=== PATIENT | male | born 1945 | race Caucasian/White ===

== ENCOUNTER 2016-09-30 20:30 | Inpatient (IN) | payer MEDICARE ==
[~2016-09-30] VITALS: Ht 182.9 cm; Wt 85.8 kg
--- NOTE | ~2016-09-30 | CON ---
PATIENT'S NAME: MELISSA EATON [facility] AGE: 71 Y [address] ROOM: [id number] [place] [address] LOCATION: GPCU ADMIT DATE: 10/02/2016 Consultation DISCHARGE DATE: FAMILY PHYSICIAN: PHYSICIAN, UNKNOWN ATTENDING PHYSICIAN: RANDY SLOAN DATE OF CONSULTATION: 10/03/2016 REFERRING PHYSICIAN: Randy Sloan MD LOCATION: [facility], [facility]. REASON FOR CONSULTATION: This is a Palliative Care referral for [id number] and end-stage MDS. HISTORY OF PRESENT ILLNESS: This 71-year-old male comes in with abdominal pain in epigastric region and across right upper and lower quadrant, achy, and constant. He had been declining at home, getting weaker, and having more shortness of breath on exertion. He has a known history of Crohn's disease for many years and had been followed by Dr. Segura at [facility]. He also has chronic diarrhea from his Crohn's disease. He continues to have abdominal pain, rates as 7/10, it goes down to about a 5/10. He would like for pain to be lessened. Morphine helps, but does not last very long. He does have some nausea at times and take Zofran for nausea, which helps, and some shortness of breath with exertion. He had chest x-ray that showed [id number] right pleural effusion. A CT of the abdomen and pelvis without contrast showed colitis in the ascending and transverse colon with colonic wall thickening and mild ascites with diffuse mesenteric and retroperitoneal edema, large right pleural effusion, small left pleural effusion, and a small metallic foreign body in the small bowel of unknown etiology. The patient also has a known history of myelodysplastic syndrome, which has been getting worse over the past year requiring multiple transfusions and units of platelets. PAST MEDICAL HISTORY: History of paroxysmal atrial fibrillation, Crohn's disease with chronic diarrhea, abdominal pain, hypertension, chronic kidney disease, stage 3, 3-cm mass in the right upper kidney, the patient declines further investigation, coronary artery disease, post CABG, grafting with stents placed several years ago, anxiety disorder, and depression. PAST SURGICAL HISTORY: Partial small bowel obstruction, secondary to Crohn's disease in the past, status post colectomy twice in the past, according to the patient, status post cholecystectomy, status post appendectomy, status post CABG, coronary artery disease bypass grafting and stents placed in the past. PATIENT'S NAME: MELISSA EATON [facility] AGE: 71 Y [address] ROOM: [id number] [place], [place] [address] [facility] ADMIT DATE: 10/02/2016 Consultation DISCHARGE DATE: FAMILY PHYSICIAN: PHYSICIAN, UNKNOWN ATTENDING PHYSICIAN: RANDY SLOAN ALLERGIES: NONE. HOME MEDICATIONS: 1. Calcium with vitamin D 1 tab b.i.d. 2. Mag oxide 400 mg b.i.d. 3. Folic acid 1 mg daily. 4. Seroquel 25 mg daily at bedtime. 5. Protonix 40 mg daily. 6. Zoloft 50 mg p.o. daily. 7. Trazodone 100 mg at bedtime. 8. Levaquin 500 mg daily. 9. Fluconazole 200 mg daily. 10. Zofran 8 mg every 8 hours p.r.n. nausea and vomiting. 11. Allopurinol 100 mg daily. 12. Flomax 0.5 mg p.o. daily. 13. Diphenoxylate/atropine 1 tablet p.o. t.i.d. 14. Tramadol 50 mg every 6 hours p.r.n. pain. 15. Acyclovir 400 mg daily. 16. Pravastatin 40 mg daily. 17. Nitroglycerin 0.4 mg sublingual every 5 minutes p.r.n. chest pain. 18. Colace 100 mg p.o. daily. 19. Mercaptopurine 50 mg p.o. b.i.d. 20. Tylenol 1000 mg p.o. every 6 hours p.r.n. pain. 21. Hydralazine 50 mg p.o. t.i.d. 22. Hydrochlorothiazide 12.5 mg daily. 23. Lovastatin 100 mg daily. 24. Sotalol 80 mg b.i.d. SOCIAL HISTORY: He lives alone in [place], has 1 sister, lives in the prison. Mother . No alcohol or illicit drug use. Former smoker, half-pack a day for 50 years. FAMILY HISTORY: Father had Alzheimer's, mother after fracturing a hip and advanced age. REVIEW OF SYSTEMS: A 10-point review of systems was done and is negative except as mentioned in HPI and listed below. HEENT: Denies any nosebleeds or bleeding in the oral cavity. GI: He has diarrhea which is normal for him. Last bowel movement 10/02/2016. MUSCULOSKELETAL: Overall, decreased strength. ABDOMEN: Tender throughout. Complains of pain 7/10. Has morphine IV. Has PATIENT'S NAME: MELISSA EATON [facility] AGE: 71 Y [address] ROOM: [place] [address] LOCATION: GPCU ADMIT DATE: 10/02/2016 Consultation DISCHARGE DATE: FAMILY PHYSICIAN: PHYSICIAN, UNKNOWN ATTENDING PHYSICIAN: RANDY SLOAN been taken morphine 2 mg 8 times in the last 24 hours. States it helps him get some rest, but it does not last very long and he is back to hurting. DERM: No new rashes. PSYCH: Some history of depression, is on antidepressants. Positive for fatigue and loss of energy. PHYSICAL EXAMINATION: GENERAL: This is a 71-year-old male in no acute distress. Alert, oriented, in no acute distress. Tires easily. VITAL SIGNS: Temp 97.9, pulse 70, respirations 16, blood pressure 162/76, and O2 sats 92%. He is on oxygen 1 L. SKIN: Warm and dry. Color pale. Multiple ecchymotic areas noted on extremities. HEENT: Normocephalic and atraumatic. Sclerae are nonicteric. Conjunctivae are pale and pink. Mouth is pink and moist without exudate. No bleeding noted. LYMPHS: No cervical adenopathy or thyromegaly. RESPIRATORY: Clear to auscultation bilaterally, diminished. CARDIAC: S1, S2 without murmurs or bruits. ABDOMEN: Rounded, tender upon palpitation, positive bowel tones, no hepatosplenomegaly. NEUROLOGIC: Grossly intact. No focal deficits. MUSCULOSKELETAL: Appropriate range of motions and gait unsteady when up. EXTREMITIES: No cyanosis, multiple ecchymotic areas noted on lower extremities. No edema. LABORATORY DATA: Sodium 142, potassium 4.2, BUN 34, creatinine 1.4, albumin is 2.4, GFR is 50. White count is 3.8, hemoglobin 7.1, hematocrit 22.1, and platelets are 2000. IMPRESSION: Weakness, fatigue, abdominal pain, and emotional distress. PLAN: Met with the patient. Discussed chronic conditions is colitis, Crohn's disease, MDS, resistant to platelets infusions, overall declining status. Discussed goals and the patient states that Dr. Onofre had 1 more med that he would like to him to try to help with his MDS to give him some quality of life. He has a granddaughter who is getting in October and will graduate in December and he would sure like to meet that goal and see her accomplish those goals. He also knows that if he stops all aggressive treatments, he will last about a month, he has a very good understanding of his chronic diseases and prognosis. He is just not ready to stop and go comfort cares yet or go on hospice. PATIENT'S NAME: MELISSA EATON [facility] AGE: 71 Y [address] ROOM: [id number] [place], [place] [address] LOCATION: GPCU ADMIT DATE: 10/02/2016 Consultation DISCHARGE DATE: FAMILY PHYSICIAN: PHYSICIAN, UNKNOWN ATTENDING PHYSICIAN: RANDY SLOAN GOALS: 1. Continue with treatments possibly do 1 more chemo treatment. 2. Hopefully go back home with home health. Has some good support in the community who could help him be at home. Already has a pretty good system of people delivering groceries and helping him home health and [employer] might be a good support for him. If the patient is too weak to go back home discussed other options of possibly going to the swing bed in [place]. 3. Get chemo from Dr. Onofre. 4. Make it to his granddaughter's wedding and graduation. 5. To control abdominal pain better. RECOMMENDATIONS: 1. Abdominal pain, may increase the morphine and give his range 2-4 mg every 3 hours due to the patient taking 2 mg 8 times in the last 24 hours. May need a [employer]. Did discuss a fentanyl with patient and the patient states he had had problems with the pain patch in the past. He is currently on clear liquid diet, to rest bowel. 2. Weakness, and fatigue, may consider getting up in the chair, and working with Physical Therapy if the patient's goal is to get back home. 3. Emotional distress. a. Active listening. b. Emotional support given. c. We will continue to work on goals of care. Thank you for allowing me to assist with this patient. SADIE CARVAJAL NP FOR MD ANKUSH FRIAS/torrey /[id number] d: 10/04/16 0124 t: 10/10/16 1731, CONSULTATION REPORT
--- NOTE | ~2016-09-30 | HP ---
PATIENT'S NAME: MELISSA EATON [facility] AGE: 71 Y [address] ROOM: [id number] [place], [place] [address] LOCATION: GPCU ADMIT DATE: 09/30/2016 History & Physical DISCHARGE DATE: FAMILY PHYSICIAN: PHYSICIAN, UNKNOWN ATTENDING PHYSICIAN: TOM SLOAN DATE OF SERVICE: CHIEF COMPLAINT: Acute on chronic abdominal pain in the epigastric and also in the right upper and right lower quadrants, as well as acute on chronic worsening dyspnea on exertion. HISTORY OF PRESENT ILLNESS: This is a 71-year-old male, who says that for a long time, he has been having dyspnea on exertion, and also for a long time, he has been having chronic abdominal pain in the epigastric and also in the upper right and lower quadrants. The patient has a history of Crohn disease for many years, followed by Dr. Segura in [facility]. He chronically has diarrhea. He says that last night, his epigastric and the right upper/right lower quadrants abdominal pain got worse. However, his diarrhea frequency has been the same of about 3 to 6 times a day. He also noticed this worsening exertional dyspnea for the last few months. Because of the worsening abdominal pain and dyspnea on exertion, the patient went to [place] for evaluation. Over there, the patient had a chest x-ray performed, which showed small-to- moderate right pleural effusion. He also had a CT of the abdomen and pelvis without contrast, which showed findings of colitis in the ascending and the transverse colon, with colonic wall thickening and mild ascites with diffuse mesenteric and retroperitoneal edema. Large right pleural effusion. Small left pleural effusion. Metallic foreign body in the small bowel of unknown etiology. EKG showed sinus rhythm without any acute ischemic changes. Blood work was also performed and was remarkable for a creatinine of 1.38 and alkaline phosphatase of 135. White blood cells were 4.7, hemoglobin was 8.4, hematocrit was 25, platelets were 3, and ESR was 36. Lactic acid of 2.0. Looking back at the [facility], his hemoglobin usually runs in 8.2, hematocrit was at 25, his platelet usually runs in the 2 to 4, and white blood cells usually run in the 2.5 to 5. His creatinine usually runs in the 1.2 to 1.4. GFR runs in the 50s. Given that [place] is a small hospital, and due to the concern for his pancytopenia as well as the finding of the colitis on the CT scan, the patient PATIENT'S NAME: MELISSA EATON [facility] AGE: 71 Y [address] ROOM: [id number] [place], [place] [address] [facility] ADMIT DATE: 09/30/2016 History & Physical DISCHARGE DATE: FAMILY PHYSICIAN: PHYSICIAN, UNKNOWN ATTENDING PHYSICIAN: TOM SLOAN was transferred here for higher level of care. The patient denies any bleeding whatsoever. He denies any epistaxis, melena, hematochezia, hematemesis, hemoptysis, coffee-ground emesis, or any type of bleeding. He does have petechiae in his bilateral lower extremities, but that is chronic and has been there for a long time. He denies any nausea or vomiting, but he does have occasional dry hives. REVIEW OF SYSTEMS: As mentioned in the history of present illness. All other systems were reviewed and were negative except those mentioned in the history of present illness. PAST MEDICAL HISTORY: 1. Myelodysplastic syndrome, currently getting periodic platelets and packed red blood cell transfusions. He is not on chemotherapy or radiation therapy. 2. History of paroxysmal atrial fibrillation. Currently, in sinus rhythm. 3. Crohn disease with chronic diarrhea and abdominal pain. 4. Hypertension. 5. Chronic kidney disease, stage 3. 6. A 3-cm upper mass in the right kidney (the patient declined further investigation). 7. Coronary artery disease, status post CABG coronary artery bypass grafting and stents placed several years ago accordig to patient. 8. Anxiety disorder. 9. Depression. PAST SURGICAL HISTORY: 1. Partial small bowel obstruction secondary to Crohn disease in the past, status post colectomy twice in the past according to patient. 2. Status post cholecystectomy. 3. Status post appendectomy. 4. Status post CABG coronary artery bypass grafting and stents placed in the past. ALLERGIES: NONE. HOME MEDICATIONS: 1. Calcium with vitamin D one tablet p.o. b.i.d. 2. Magnesium oxide 400 mg p.o. b.i.d. 3. Folic acid 1 mg p.o. daily. 4. Seroquel 25 mg p.o. daily at bedtime. PATIENT'S NAME: MELISSA EATON [facility] AGE: 71 Y [address] ROOM: [address] [place] [address] [facility] ADMIT DATE: 09/30/2016 History & Physical DISCHARGE DATE: FAMILY PHYSICIAN: PHYSICIAN, UNKNOWN ATTENDING PHYSICIAN: TOM SLOAN 5. Protonix 40 mg p.o. daily. 6. Zoloft 50 mg p.o. at bedtime. 7. Trazodone 100 mg p.o. at bedtime. 8. Levaquin 500 mg p.o. daily. 9. Fluconazole 200 mg p.o. daily. 10. Zofran 8 mg p.o. every eight hours p.r.n. for nausea and vomiting. 11. Allopurinol 100 mg p.o. daily. 12. Flomax 0.4 mg p.o. daily. 13. Diphenoxylate/atropine one tablet p.o. t.i.d. 14. Tramadol 50 mg p.o. every six hours p.r.n. for pain. 15. Acyclovir 400 mg p.o. daily. 16. Pravastatin 40 mg p.o. daily. 17. Nitroglycerin 0.4 mg sublingual every five minutes p.r.n. for chest pain. 18. Colace 100 mg p.o. daily. 19. Mercaptopurine 50 mg p.o. b.i.d. 20. Tylenol 1000 mg p.o. every six hours p.r.n. for pain. 21. Hydralazine 50 mg p.o. t.i.d. 22. Hydrochlorothiazide 12.5 mg p.o. daily. 23. Losartan 100 mg p.o. daily. 24. Sotalol 80 mg p.o. b.i.d. SOCIAL HISTORY: Habits: The patient is an active cigarette smoker of about half pack per day for the last 50 years. He denies any alcohol or any illegal drug use. FAMILY HISTORY: Father from Alzheimer disease. Mother from advanced age, from a cause that he could not remember. PHYSICAL EXAMINATION: VITAL SIGNS: At the time of my dictation, temperature was 97.4, heart rate was 60, respirations were 15, blood pressure was 141/109, and saturation was 92% on room air. Pain is 6/10 in the epigastric area and in the right upper and the right lower quadrants. GENERAL APPEARANCE: Alert and oriented x3. A very pleasant male, in no acute distress. HEENT: Pupils were equally round and reactive to light. Extraocular muscles are intact. Anicteric sclerae. Nasal turbinates are normal bilaterally. Moist oral mucosa. No oral thrush. NECK: No JVD jugular venous distention. PATIENT'S NAME: MELISSA EATON [facility] AGE: 71 Y [address] ROOM: [address] [address] [facility] ADMIT DATE: 09/30/2016 History & Physical DISCHARGE DATE: FAMILY PHYSICIAN: PHYSICIAN, UNKNOWN ATTENDING PHYSICIAN: TOM SLOAN CARDIOVASCULAR: Regular rate and rhythm. No murmur. No rubs. No gallops. RESPIRATORY: Decreased breath sounds in bibasilar bases, more on the right than the left. No wheezing. No rhonchi. No crackles. No rales. ABDOMEN: Moderate tenderness to palpation in the epigastric and in the right upper and right lower quadrants. No abdominal rigidity. No physical examination to suggest peritonitis. Bowel sounds were present. Soft and nondistended. I could not appreciate hepatosplenomegaly. No palpable mass. EXTREMITIES: No edema in upper or lower extremities. NEUROLOGICAL: Grossly nonfocal. SKIN: He has petechiae in bilateral lower extremities which is chronic. GENITOURINARY: Not examined, given that it is not related to this admission. LABORATORY DATA: Blood work performed on September 30, 2016 from the outside facility in [place] showed white blood cells of 4.7, hemoglobin of 8.4, hematocrit of 25, and platelets of 3. Sodium was 141, potassium was 3.7, carbon dioxide was 26, glucose was 139, BUN blood urea nitrogen of 44, creatinine of 1.38, total calcium of 8.8, total protein of 5.7, albumin of 2.8, total bilirubin of 0.8, ALT of 61, AST of 42, alkaline phosphatase of 135, GFR of 54, chloride of 108, amylase of 55, lipase of 83, and lactic acid of 2.0. Troponin is less than 0.06. CK-MB was less than 0.5. ESR erythrocyte sedimentation rate of 36. IMAGING STUDIES: EKG on admission showed sinus rhythm of heart rate of 65 and QTc of 426. No acute ischemic changes. CT of abdomen and pelvis without contrast from the outside facility on admission showed findings of colitis in the ascending and in the transverse colon consistent with a wall thickening. Mild ascites with diffuse mesenteric and retroperitoneal edema. Large right pleural effusion. Small left pleural effusion. Metallic foreign body in the small bowel of unknown etiology. Chest x-ray performed from the outside facility on admission showed a small-to- moderate right pleural effusion. No focal consolidation. There was atelectasis in the right lung base. ASSESSMENT AND PLAN: 1. Colitis in the setting of Crohn disease: N.p.o. Ceftriaxone and IV PATIENT'S NAME: MELISSA EATON [facility] AGE: 71 Y [address] ROOM: [address] [address] LOCATION: GPCU ADMIT DATE: 09/30/2016 History & Physical DISCHARGE DATE: FAMILY PHYSICIAN: PHYSICIAN, UNKNOWN ATTENDING PHYSICIAN: TOM SLOAN. IV fluids. Steroids. Florastor 250 mg p.o. b.i.d. IV fluids will be running at a slow rate. Given that the patient is hemodynamically stable and has a large right pleural effusion, I will give him lactated Ringer at 50 mL/hr. IV morphine p.r.n. for pain control. GI Gastrointestinal consult in the morning. The patient might have a flare of the Crohn disease. Check labs in the morning. Blood culture was already obtained from the outside facility. The patient does not look septic. Currently, the patient is hemodynamically stable. Lactic acid was also normal from the outside facility. Further plan depends on clinical course. 2. Regarding his acute hypoxemic respiratory failure: He does have a large right-sided pleural effusion more than the left side based on CT report. The patient currently is saturating 97% on 2 L oxygen nasal cannula. On room air, the patient went down to the 90s, to 92. The dyspnea is only on exertion, and this is chronic. Has severe thrombocytopenia resistant to platelet transfusion due to his MDS which could make thoracocentesis difficult. The patient is not in severe acute respiratory failure, and does not require emergent intubation at the moment. Will consult Pulmonlogy if necessary. I have spoken at length with the patient regarding his advanced stage of myelodysplastic syndrome not responding much to transfusions for his chronic anemia and thrombocytopenia. The patient does not want invasive procedures done and states that he has been through a lot and he is tired of his myelodysplastic syndrome. I spoke to him about getting a palliative care consult and the patient agreed. Therefore, I will be placing a Palliative Care consult. The patient at home takes p.o. Levaquin, and I will continue that for now. 3. Regarding his anemia and thrombocytopenia secondary to myelodysplastic syndrome: currently, he does not have leukopenia, and his thrombocytopenia is actually better than last time. He said his platelet count is always between 2k to 4k despite platelet transfusions. He denies any active bleeding. Last time he was here, he received multiple units of HLA-matched platelet transfusions with very little to no response. His platelet was 4k on 09/28/16. Currently, the patient is not bleeding and his platelet count on admission is 3k (drawn at [place]) and that is his average and does not increase further depsite platelet transfusions. The patient has been followed closely as outpatient by patient's primary oncologist and security team lead and would like to continue that here. I will place consult for hematology/oncology in AM. No finding of acute on chronic anemia. Therefore, packed red blood cell transfusion is not necessary at the moment. The patient also denies any bleeding. PATIENT'S NAME: MELISSA EATON [facility] AGE: 71 Y [address] ROOM: [place] [address] [facility] ADMIT DATE: 09/30/2016 History & Physical DISCHARGE DATE: FAMILY PHYSICIAN: PHYSICIAN, UNKNOWN ATTENDING PHYSICIAN: TOM SLOAN 4. Regarding his 3 cm right renal mass seen on the CT scan of the abdomen and pelvis in August 2016: The patient does not want to pursue any further study or any invasive procedure. His thrombocytopenia also makes any invasive procedure difficult. The patient is also going to have a Palliative Care consult. 5. Deep venous thrombosis prophylaxis. The patient is on compression devices. Time spent on the day of admission was 40 minutes including chart review, interviewing and examining the patient, as well as addressing all the questions and concerns that the patient had. I also went over the plan of care with the nurse and the patient. TOM SLOAN MD CC/modl /[id number] D: 135 T: HISTORY & PHYSICAL
--- NOTE | ~2016-09-30 | DS ---
PATIENT'S NAME: MELISSA EATON [facility] AGE: 71 Y [address] ROOM: [place] [address] LOCATION: GPCU ADMIT DATE: 10/02/2016 Discharge Summary DISCHARGE DATE: 10/06/2016 FAMILY PHYSICIAN: Physician, Unknown ATTENDING PHYSICIAN: Randy Mead DATE OF : 10/06/2016 PRIMARY/DISCHARGE DIAGNOSES: 1. Myelodysplastic syndrome. 2. Pancytopenia. 3. Severe thrombocytopenia without bleeding. 4. Acute on chronic hypoxic respiratory failure. 5. Crohn disease flare. 6. Paroxysmal atrial fibrillation. 7. Essential hypertension. 8. Chronic kidney disease, stage 3. 9. Coronary artery disease. 10. Right renal mass. OPERATIONS AND PROCEDURES: None. HISTORY OF PRESENTING ILLNESS/REASON FOR ADMISSION: Please refer to the H and P dictated on 09/30/2016. HOSPITAL COURSE: The patient was admitted to the hospital as noted above with a presumptive diagnosis of acute Crohn's colitis flare in the setting of myelodysplastic syndrome, end-stage. He was placed on progressive care. He was noted to be significantly pancytopenic which was known and followed on an outpatient basis. He had been receiving some PRBC transfusions on an outpatient basis by Hematology and Oncology. Although, his platelets were profoundly low at 2 to 3 at his baseline. He did not show any evidence for bleeding. Hematology and Oncology had recommended against platelet transfusions unless there was evidence for active bleeding. Gastroenterology was consulted. It was felt that he was likely suffering from Crohn disease flare based on clinical exam findings. It was recommended for a prednisone burst as well as treatment with 6-mercaptopurine with a gradual taper. It was requested that Hematology and Oncology follow and taper the regimen of 6-mercaptopurine. Ultimately, the oncologist did evaluate the patient and eventuality the dose of 6-mercaptopurine was reduced. The patient's clinical condition was poor from the outset. He demonstrated significant dyspnea on exertion and some early evidence for acute hypoxic respiratory failure. Oxygen requirements gradually increased. He did receive some IV fluids as well as broad-spectrum antibiotic therapy including IV PATIENT'S NAME: MELISSA EATON [facility] AGE: 71 Y [address] ROOM: [place] [address] LOCATION: GPCU ADMIT DATE: 10/02/2016 Discharge Summary DISCHARGE DATE: 10/06/2016 FAMILY PHYSICIAN: Physician, Unknown ATTENDING PHYSICIAN: Randy Mead Flagyl, and ceftriaxone. Additionally, his home regimen of acyclovir and fluconazole were continued. Cultures remained negative over the course of his hospital stay. The patient continued to complain of refractory abdominal pain. He got some relief with IV morphine and Palliative Care was consulted. They followed him and helped to manage his chronic pain over the course of his hospital stay. His IV morphine regimen was increased gradually. The patient's clinical condition continued to decline somewhat and he became increasingly lethargic and nearly obtunded. The morphine regimen was reduced. His renal function deteriorated somewhat. He was felt to be intravascularly volume deplete and he did receive some additional IV fluid therapy. Urine output was poor, and he received Lasix to help stimulate diuresis. I had some concern that he was becoming fluid overloaded evidenced by his increasing oxygen requirements. By 10/05/2016, the patient had become quite lethargic and nearly obtunded. This increased over the course of the day on 10/06/2016 and once again, the morphine regimen was reduced. Palliative Care was also involved. We did have some preliminary discussions regarding treatment goals and expectations and the patient indicated that he did not wish for any aggressive interventions. Previously, he had refused a workup for the right renal mass citing that he did not want to undergo further treatments. He had been holding out some hope for an additional chemotherapy option by Hematology and Oncology. That was discussed with both Dr. Onofre and Dr. Banerjee, however, aggressive supportive care was recommended. On the evening of 10/06/2016, the patient was resting in his room when bradycardia was noted on telemetry. The nurse was notified, but the bradycardia progressed and heart rates ranged below 30 until he became asystolic. At that point, he was noted to be without pulse or respirations. His wishes for DNR and DNI were observed and he was pronounced at 1858 hours on 10/06/2016. Family were notified and expressed no concerns or questions. MD DEDRICK SCHWARTZ/torrey /[id number] d: 10/09/16 1246 t: 10/16/16 1651, DISCHARGE SUMMARY
--- NOTE | ~2016-09-30 | CON ---
PATIENT'S NAME: MELISSA EATON [facility] AGE: 71 Y [address] ROOM: [id number] [place], [place] [address] LOCATION: GPCU ADMIT DATE: 09/30/2016 Consultation DISCHARGE DATE: FAMILY PHYSICIAN: PHYSICIAN, UNKNOWN ATTENDING PHYSICIAN: RANDY SLOAN DATE OF CONSULTATION: 10/01/2016 REFERRING PHYSICIAN: Randy Sloan MD CONSULTING PHYSICIAN: Abraham Cintron MD. REASON FOR CONSULTATION: Possible exacerbation of Crohn's disease. HISTORY OF PRESENT ILLNESS: The patient is a very pleasant 71-year-old white male who has had a long- standing history of Crohn's disease. He said his first bowel resection was carried out almost 40 years ago. Last resection was done in 2008. He has been managed by Dr. Segura in the [facility]. He was previously managed at [place]. I do not have any much details of the management being offered to him. However, he does seem to be on mercaptopurine 100 mg a day for his problem. He has diarrhea everyday. Gets 7 to 6 bowel movements a day. Recently started feeling very weak. He was ultimately worked up over the last 1 year. He was found to have anemia. He was extensively worked up for the GI tract. He had upper endoscopy and colonoscopy. Apparently, he also had a capsule endoscopy, in which the capsule ultimately did not pass and he still has it in his abdomen, although it is not obstructing. He probably did have a push enteroscopy also. He was seen in [place] yesterday for shortness of breath. He also had worsening abdominal pain. The chest x-ray showed [id number] right pleural effusion. CT of the abdomen and pelvis without contrast showed findings of colitis in the ascending and the transverse colon with colon wall thickening and mild ascites with diffuse mesenteric and retroperitoneal edema. He also has had a right pleural effusion. There was a metallic body in the small bowel, which is likely the capsule. He was found to have a creatinine of 1.38, WBC is 4.7, hemoglobin is 8.4, platelet counts were 3000, ESR 36. His hemoglobin usually runs in the same range. Platelet count was very low hovering around 2 to 4. He gets twice weekly transfusion of blood and platelets White cell count has been between 2.5 to 5. Today, he is still complaining of pain. He has been seen by Palliative Care. He does understand that his prognosis is guarded and wants adequate pain relief. PAST MEDICAL HISTORY: Significant for myelodysplastic syndrome, he did try some chemotherapy initially, but has stopped that now; history of paroxysmal atrial fibrillation, currently in sinus rhythm; Crohn's disease, as above; PATIENT'S NAME: MELISSA EATON [facility] AGE: 71 Y [address] ROOM: [place] [address] LOCATION: GPCU ADMIT DATE: 09/30/2016 Consultation DISCHARGE DATE: FAMILY PHYSICIAN: PHYSICIAN, UNKNOWN ATTENDING PHYSICIAN: RANDY SLOAN hypertension; CKD stage 3; 3 cm mass in the right kidney, which he declined any further workup; coronary artery disease status post CABG several years ago; anxiety disorders; and depression. PAST SURGICAL HISTORY: Significant for at least 2 bowel resections for bowel obstructions, prior cholecystectomy, appendectomy, coronary artery bypass grafting, and stent placement in the past. ALLERGIES: NO KNOWN DRUG ALLERGIES. MEDICATIONS: Include: 1. Calcium. 2. Magnesium oxide. 3. Folic acid. 4. Seroquel. 5. Protonix. 6. Zoloft. 7. Trazodone. 8. Levaquin. 9. Fluconazole. 10. Zofran. 11. Allopurinol. 12. Flomax. 13. Diphenoxylate and atropine. 14. Tramadol. 15. Acyclovir. 16. Prevacid and nitroglycerin p.r.n. 17. Colace 100 mg p.o. b.i.d. 18. Tylenol. 19. Hydralazine. 20. Hydrochlorothiazide. 21. Losartan. 22. Sotalol. 23. Pentasa SOCIAL HISTORY: The patient is an active cigarette smoker about half pack a day. He denies any alcohol or any illegal drug use. FAMILY HISTORY: Father from Alzheimer disease. Mother from advanced age her history not available. PATIENT'S NAME: MELISSA EATON [facility] AGE: 71 Y [address] ROOM: [place] [address] LOCATION: GPCU ADMIT DATE: 09/30/2016 Consultation DISCHARGE DATE: FAMILY PHYSICIAN: PHYSICIAN, UNKNOWN ATTENDING PHYSICIAN: RANDY SLOAN PHYSICAL EXAMINATION: GENERAL: Today, he is alert and awake. He gives a very decent history. Reveals significant pallor. He is does not appear to be jaundiced. VITAL SIGNS: Temperature is 98.1, pulse is 64 per minute, blood pressure 133/60, and his respiratory rate is 16. HEENT: Oral cavity is normal. Nasal passages are clear. CHEST: He does have good air entry bilaterally, this is a limited exam. CARDIOVASCULAR: S1 and S2. Peripheral pulses are palpable and normal. No carotid bruits are heard. ABDOMEN: He has significant distention in the upper abdomen in the epigastrium and RUQ. This appears to be the area of the transverse colon and the ascending colon. He does have normal bowel sounds. MUSCULOSKELETAL: No obvious injuries or deformities are seen. NEUROLOGICAL: Nonfocal. LABORATORY DATA: Today showed blood cultures are negative. Complete blood count showed WBC 3, platelet count is 3000, hemoglobin of 6.8, hematocrit is 20.9. Procalcitonin is high at 1.11. Basic panel shows sodium 144, potassium 4.0, chloride is 110, bicarb is 24, BUN is 43, and creatinine is 1.6. Lactate is 0.8. IMPRESSION: The patient with a history of Inflammatory bowel disease, possible Crohn's disease, presenting now with what appears to be some degree of exacerbation of Crohn's disease. He does have significant abdominal distention. The significant confounding factor in his case is his myelodysplastic syndrome. He says he has severe thrombocytopenia. He is not a candidate for any workup at this time. He wants adequate pain relief. I would suggest that we continue with the palliative care. If Hematology agrees, we may give him short-term steroids to improve his colitis. We may also consider stopping his Mercaptopurine at some point in consultation with his recreational director if it is felt that it might improve his cell counts. Thank you once again for the courtesy of this consultation. MD SKYLER GONZALEZ/torrey /[id number] d: 10/01/161218 t: 10/02/16 1211, CONSULTATION REPORT
--- NOTE | ~2016-09-30 | CON ---
PATIENT'S NAME: MELISSA KIRBY [facility] AGE: 71 Y [address] ROOM: [id number] [place], [place] [address] LOCATION: GPCU ADMIT DATE: 10/02/2016 Consultation DISCHARGE DATE: 10/06/2016 FAMILY PHYSICIAN: Physician, Unknown ATTENDING PHYSICIAN: Randy Mead REFERRING PHYSICIAN: Jag Onofre MD This is a consult to Dr. Mead. Melissa Kirby is a 71-year-old man, hospitalized with multiple comorbidities. Hematology/Oncology is asked to visit to gauge his prognosis from his myelodysplastic syndrome and the suitability of eltrombopag in this setting. The patient is well known to the [facility]. The last office progress note (09/29/2016) dictated by Dr. Onofre is appended to the chart in Physicians Reports and will not be repeated. At that time, plans were made for aggressive supportive care with continued platelet transfusions. Plans were made to forego more definitive therapy with hypomethylating agents. Plans were made to employ the thrombopoietic agent, eltrombopag, and efforts to obtain this were launched. The patient was discharged from the office and returned to his home in [place], [place]. On 09/30/2016, the patient presented to the [facility] with acute on chronic abdominal pain in the epigastric and right upper and lower quadrant as well as persistent and worsening dyspnea on exertion. The patient was seen in the [place] [facility] and was referred to [facility] because of the complexity of his care. White count in [place] was 4700, hemoglobin 8.4, and platelets 3000. The general chemical profile revealed the albumin was 2.8 g/dL and the liver function tests were unremarkable. The creatinine was elevated at 1.4 mg/dL. The ESR was 35. An EKG revealed no acute ischemic changes and a normal sinus rhythm. A chest x-ray revealed a [id number] right pleural effusion. CAT scan of the abdomen and pelvis revealed findings consistent with "colitis" in the ascending and transverse colon with wall thickening. There was mild ascites with diffuse mesenteric and retroperitoneal edema and a small left pleural effusion. A metallic foreign body was present in the small bowel (this is a Pill-Cam). The patient was transferred to [facility]. Palliative Care has been consulted. The patient has been placed on steroids and has continued to receive platelet transfusion support. The patient has a myelodysplastic syndrome, which was first suspected in 2016. This developed in the setting of longstanding Crohn disease, requiring immunosuppression. On 04/09/2016, a myelodysplastic syndrome consistent with refractory cytopenia with multilineage dysplasia with a hypocellular bone marrow was documented. 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 ROOM: [id number] [place], [place] [address] LOCATION: GPCU ADMIT DATE: 10/02/2016 Consultation DISCHARGE DATE: 10/06/2016 FAMILY PHYSICIAN: Physician, Unknown ATTENDING PHYSICIAN: Randy Mead dysmyelopoiesis and dysmegakaryopoiesis with no increase in blasts, increased storage iron, and increased sideroblastic iron. Iron stores were increased. On 05/05/2016, azacitidine was administered. A second cycle was never administered. The patient experienced profound neutropenia and thrombocytopenia with the first cycle and subsequently has become refractory to platelet transfusions, even single donor platelet transfusions. Definitive therapy with azacitidine was then held and eltrombopag was contemplated as noted above. ACTIVE MEDICAL PROBLEMS CHRONIC AND DIAGNOSED: 1. Paroxysmal atrial fibrillation. 2. Myelodysplastic syndrome, refractory cytopenia with multilineage dysplasia. 3. Crohn's disease with daily diarrhea and chronic abdominal pain. 4. Hypertension. 5. CKD, stage III. 6. A 3-cm right renal mass. 7. ASHD, status post CABG, coronary artery bypass grafting, and stents placed. 8. Anxiety disorder and depression. ACUTE MEDICAL ILLNESSES (RESOLVED), PAST SURGERIES, INJURIES: 1. Partial small bowel obstruction. 2. Crohn disease with 2 partial colectomies. 3. Status post cholecystectomy. 4. Status post appendectomy. 5. Status post CABG, coronary artery bypass grafting, and stents placed in the past. MEDICATIONS UPON ADMISSION: 1. Acetaminophen. 2. Acyclovir. 3. Allopurinol. 4. Amlodipine. 5. Calcium with vitamin D. 6. Diphenoxylate with atropine. 7. Docusate sodium. 8. Fluconazole. 9. Folic acid. 10. Hydralazine. 11. Hydrochlorothiazide. 12. Levofloxacin. 13. Losartan. 14. Magnesium oxide. 15. Mercaptopurine 50 mg p.o. b.i.d. PATIENT'S NAME: MELISSA KIRBY [facility] AGE: 71 Y [address] ROOM: [id number] [place], [place] [address] LOCATION: GPCU ADMIT DATE: 10/02/2016 Consultation DISCHARGE DATE: 10/06/2016 FAMILY PHYSICIAN: Physician, Unknown ATTENDING PHYSICIAN: Randy Mead 16. Mesalamine 500 mg p.o. q.i.d. 17. Nitroglycerin p.r.n. 18. Ondansetron p.r.n. 19. Pantoprazole. 20. Pravastatin. 21. . 22. Sertraline. 23. Sotalol. 24. Tamsulosin. 25. Trazodone. ADVERSE REACTIONS TO MEDICATIONS/TRANSFUSIONS/ALLERGIES: The patient has no known allergies. The patient has received multiple platelet transfusions about twice weekly since August 2016. The patient has received 5 units of packed red blood cells since June 2016. SOCIAL HISTORY: The patient lives alone in [place]. He has a sister in [place], who is in the snf. The patient apparently has a granddaughter, who is not particularly close. The patient does have some friends in [place]. One-half pack per day for 50 years. No alcohol use. FAMILY HISTORY: Father of senile dementia of the Alzheimer's type. REVIEW OF SYSTEMS: Negative other than those noted in the history of present illness. PHYSICAL EXAMINATION: VITAL SIGNS: Pulse 60 and regular, blood pressure 115/55, respiratory rate 20, temperature 96.3, and SpO2 of 92% on 4 L. GENERAL: Well-developed, slightly overweight, frail and somewhat somnolent 71- year-old male, in no acute distress. BMI 25.6 kg/m2. Height 72 inches. HEENT: Unremarkable. LYMPH NODES: No JVD or carotid bruits. CHEST: Had decreased breath sounds. Clear anteriorly. CV: Regular rhythm. No murmurs, bruits, or adventitious sounds. ABDOMEN: Mild epigastric tenderness to deep palpation with no rebound. Bowel sounds present, but decreased. GENITALIA AND RECTAL: Not examined. EXTREMITIES: Without peripheral edema. Extensive bilateral lower extremity petechiae. NEURO: The patient is arousable, but not alert. He moves all 4 extremities. PATIENT'S NAME: MELISSA KIRBY [facility] AGE: 71 Y [address] ROOM: [id number] [place], [place] [address] LOCATION: GPCU ADMIT DATE: 10/02/2016 Consultation DISCHARGE DATE: 10/06/2016 FAMILY PHYSICIAN: Physician, Unknown ATTENDING PHYSICIAN: Randy Mead IMPRESSION: 1. Persistent thrombocytopenia due to presumed alloantibodies, due to transfusions, possibly due to the myelodysplasia progressing, and cannot rule out the component of idiopathic thrombocytopenic purpura. 2. The patient is hypersomnolent for multiple causes. This could be due to his digoxin, his antidepressants and major tranquilizers, trazodone, quetiapine and sertraline, due to polypharmacy in general, due to his morphine in the setting of progressive renal insufficiency and possibly due to the end of life. 3. The patient is dwindling and the situation is bleak. Eltrombopag is generally used for idiopathic thrombocytopenic purpura, aplastic anemia, and thrombocytopenia due to hepatitis C. It is reasonably well tolerated. It may not be the standard of care for this particular indication. 4. It is probably past the point anything definitive could be employed. Eltrombopag is a creative approach, but not necessarily a dependably helpful approach. Supportive care, given his profound disability at this point, is the priority. RECOMMENDATIONS: DIAGNOSTIC: 1. No further testing. TREATMENT: 1. Hold eltrombopag at this point. 2. Best supportive care. PATIENT EDUCATION: Attempted to discuss eltrombopag with him. He was not interested in pursuing it at this time. We will stop at the very least his pravastatin and levofloxacin since he is on IV ceftriaxone at this point and since hypercholesterolemia will not worsen his prognosis. MD MANFRED MCKEON/torrey /[id number] CC: Artur Santiago MD d: 10/06/16 1833 t: 10/09/16 1249, CONSULTATION REPORT
[~2016-09-30 20:30] MED LIST: ACYCLOVIR400 MG PO; APRESOLINE50 MG PO; ASPIRIN LO-DOSE81 MG PO; BETAPACE80 MG PO; COLACE100 MG PO; COREG12.5 MG PO; COZAAR100 MG PO; DELZICOL400 M1 PO; DESYREL100 MG PO; DIFLUCAN200 MG PO; DIPHENOXYLATE-1 EACH PO; FLOMAX0.4 MG PO; FOLIC ACID1 MG PO; HYDRODIURIL12.5 MG PO; HYZAAR 100-251 EACH PO; LEVAQUIN500 MG PO; MAG-OX-400(241400 MG PO; MERCAPTOPURINE50 MG PO; NITROSTAT0.4 MG PO; NORVASC10 MG PO; OSCAL + D500 MG PO; PRAVACHOL40 MG PO; PROTONIX40 MG PO; QUETIAPINE FUMA25 MG PO; TYLENOL EXTRA500 MG PO; ULTRAM50 MG PO; VITAMIN B-1000 MCG/M IM; ZOFRAN8 MG PO; ZOLOFT50 MG PO; ZYLOPRIM100 MG PO
[2016-09-30] MEDS ORDERED: LOMOTIL1 TAB PO (22:51)
--- NOTE | 2016-10-01 00:44 | NUR ---
Pt arrived from [place] via ambulance. Was transfered d/t need for higher level of care. VSS on arrival. Pt on 2L, afebrile. SBA. C/o abd pain that is midline and throbbing. Abd distended on admission. R chest port accessed in [place]. Pt came with 1 set of blood cultures. Had IV flagyl and rocephin on transport.
[2016-10-01 03:54] LABS: HEMATOCRIT 20.9 % (37.0-53.0); MCV 90.1 fl (83.0-98.0); RBC 2.32 M/uL (3.50-5.50); RDW-CV 15.6 % (11.9-14.6)
[2016-10-01 03:59] LABS: CALCIUM 8.1 mg/dL (8.5-10.5); CREATININE 1.6 mg/dL (0.6-1.3); MAGNESIUM 2.1 mg/dL (1.3-2.6); PHOSPHORUS 4.1 mg/dL (2.5-4.9)
[2016-10-01 04:00] LABS: HEMOGLOBIN 6.8 g/dL (11.0-16.0); MCH 29.3 pg (27.0-34.0); MCHC 32.5 gm/dL (32.0-36.5)
[2016-10-01 04:02] LABS: PLATELET COUNT 3 K/uL (150-450)
[2016-10-01 05:24] LABS: ABSOLUTE NEUTROPHIL CT (ANC) 2.4 K/uL (1.4-9.0); BANDED NEUTROPHIL # 0.1 K/uL (0.0-0.1); BANDED NEUTROPHILS % 2 %; LYMPHOCYTE # 0.4 K/uL (0.8-4.0); LYMPHOCYTE % 13 %; MONOCYTE # 0.2 K/uL (0.0-1.0); SEGMENTED NEUTROPHIL # 2.3 K/uL (1.4-9.0); SEGMENTED NEUTROPHIL % 77 %
--- NOTE | 2016-10-01 05:33 | NUR ---
Pt a/o x4, vss on 2L (baseline RA), afebrile. R chest port accessed. SL. New iv CARIN SL. Needs 1 unit PRBC irradiated and 1 unit platelets. hg 6.8, platelet count 3. Has MDS- gets chronic transfusions of both. Admitted for colitis r/t chrons disease. C/o midline abd pain-recieves 1 mg morphine with occasional relief. Per [facility] pt has hx of opiod dependancy. diagnosed acites as well as bilat pleural effuisions R>L. No pulmonary consult as pt is not a surgical candidate d/t thrombocytopenia. Refuses scds Plan: GI/Hematology/Palliative care consult for today/
[2016-10-01] MEDS ORDERED: NORVASC10 MG PO (10:50)
[2016-10-01] MEDS ORDERED: PENTASA500 MG PO (10:50)
[2016-10-01 17:43] LABS: HEMATOCRIT 24.8 % (37.0-53.0); HEMOGLOBIN 8.3 g/dL (11.0-16.0)
--- NOTE | 2016-10-02 04:52 | NUR ---
Pt a/o x4, yocha dehe, some times makes confused statements but it due to his yocha dehe. VSS on 1L, afebrile. Remains to have a critical low platelett count. MD is aware-no intervention at this time. SBA to RR. Con't to c/o of upper abd pain- rated it at an 8 all noc. attempted morphine and tramadol. Eventually MD increased morphine-pt was able to rest and have relief. No labs were ordered fro today. R chest port SL other than abx. CARIN IV SL as back up for blood/abx use. Plan: Palliative consult today. ? more plateletts.
[2016-10-02 06:10] LABS: HEMATOCRIT 24.8 % (37.0-53.0); HEMOGLOBIN 8.1 g/dL (11.0-16.0); MCHC 32.7 gm/dL (32.0-36.5); MCV 88.9 fl (83.0-98.0); RBC 2.79 M/uL (3.50-5.50); RDW-CV 15.5 % (11.9-14.6); WBC 3.8 K/uL (4.0-11.0)
[2016-10-02 06:11] LABS: CPK 15 IU/L (35-332)
[2016-10-02 06:15] LABS: PLATELET COUNT 2 K/uL (150-450)
--- NOTE | 2016-10-02 06:34 | NUR ---
Pt flipped into a SVT rhythm at approx 0445. Pt VS HR 120-130's, bp 128/71 M 85, 94% on 1L, and resp 18. By 0500 pt developed chest pain-tightness, with jaw pain. MD Mead was notified of rhythm change as well as chest pain. EKG ordered as well as Morphine 2mg and Nitro SL per protocol. Both administered per protocol. at 0558 pt con't to complain that his teeth hurt and was till having chest pain that the nitro and the mophine did not really help his chest pain. HR cont at 136ish. bp 104/52. Dr. Mead at bedside ordered 1L NS bolus rapid infusion as well as metoprolol 2.5 mg push. no changes. another 2.5 mg motoprolol ivp was given. no changes. Dr. Mead order 6mg ivp adenosine- was administered 0617ish. Results appropriate. Pt hr now 60-70's nsr. Pt states chest pain is gone at this time. Rate abd pain (which he has had all noc) at rouhgly a 5- states best it has been since admission. Lab called with critical platelets while Alyce at bedside (2.1)- no intervention at this time. labs ordered for this am -cardiac enzymes, cbc, bmp, mag. will con't to montior pt.
[2016-10-02 06:49] LABS: ANION GAP 15.2 (10.0-19.0); CALCIUM 8.2 mg/dL (8.5-10.5); CREATININE 1.4 mg/dL (0.6-1.3); MAGNESIUM 2.2 mg/dL (1.3-2.6); POTASSIUM 4.2 mMol/L (3.7-5.1)
[2016-10-02 06:59] LABS: ABSOLUTE NEUTROPHIL CT (ANC) 3.2 K/uL (1.4-9.0); BANDED NEUTROPHIL # 0.3 K/uL (0.0-0.1); BANDED NEUTROPHILS % 7 %; LYMPHOCYTE # 0.3 K/uL (0.8-4.0); LYMPHOCYTE % 9 %; MONOCYTE # 0.2 K/uL (0.0-1.0); SEGMENTED NEUTROPHIL % 78 %
--- NOTE | 2016-10-02 17:38 | NUR ---
Significant Event: Alert and oriented X 3. O2 at 1L by nasal cannula. SBP 110's, 140's and 160's. HR now at 78. HR raised to [address] Fernández notified. Digoxin given at 1418 by 1530 rate was back down in the 70's. Morphine given every 3 hours. Abdomen extended complaints of tenderness. ACHS accuchecks 125, 110 no correction needed. Single lumen central line, right upper chest. Flushes well with good blood return. Peripheral IV left upper arm, flushes well. Pleasant and cooperative with cares. Follow up:
[2016-10-03 04:20] LABS: ALBUMIN 2.4 gm/dL (3.5-5.0); ANION GAP 13.2 (10.0-19.0); CALCIUM 7.9 mg/dL (8.5-10.5); PHOSPHORUS 3.7 mg/dL (2.5-4.9); POTASSIUM 4.2 mMol/L (3.7-5.1)
[2016-10-03 04:22] LABS: CREATININE 1.4 mg/dL (0.6-1.3)
[2016-10-03 04:30] LABS: HEMATOCRIT 22.1 % (37.0-53.0); MCV 90.9 fl (83.0-98.0); RBC 2.43 M/uL (3.50-5.50); RDW-CV 15.7 % (11.9-14.6)
[2016-10-03 04:31] LABS: HEMOGLOBIN 7.1 g/dL (11.0-16.0); MCH 29.2 pg (27.0-34.0); MCHC 32.1 gm/dL (32.0-36.5); PLATELET COUNT 2 K/uL (150-450)
--- NOTE | 2016-10-03 04:51 | NUR ---
Pt a/o x4. SBA. VSS on 1L, Afebrile. Con't to c/o of upper abd pain. Was nauseated-gave prn 1x dose zofran-nausea gone. had bm-pt states normal bm for him. vds per urinal. is on clear liq diet. ACHS check- 125 at hs. Had run of SVT at shift change. Gave him 250mcg digoxin push that was scheduled early per [place]. No other runs of svt this shift. Received another dose of 250mcg dig at 0300 per orders. Morphine PRN q3 hours last given at 0300. on IV rocephine and PO flagyl. Critical platelet of 2-no intervention. HG 7.1-no intervention. Port to R chest sl, excelent blood return. PIV in CARIN SL-excelent blood return Plan:Con't to monitor, palliative to see at 11am
[2016-10-03 05:21] LABS: ABSOLUTE NEUTROPHIL CT (ANC) 2.8 K/uL (1.4-9.0); BANDED NEUTROPHIL # 0.2 K/uL (0.0-0.1); BANDED NEUTROPHILS % 7 %; LYMPHOCYTE # 0.2 K/uL (0.8-4.0); LYMPHOCYTE % 5 %; SEGMENTED NEUTROPHIL # 2.6 K/uL (1.4-9.0); SEGMENTED NEUTROPHIL % 86 %
--- NOTE | 2016-10-03 12:29 | NUR ---
Introduced self and role of care management to pt. He lives alone in [place]. He has good friends around and his sister is at [employer] and he does have a gal that cleans his house for him. He states he does not go out and about much and has not been driving except in town at times but lately he has been having his groceries and his meds delivered to his home. He sets up his meds on a weekly basis but last week he was not good at taking them because he just felt aweful. He has been good at seeing his doctors here in [place] but has not seen his PCP yet Dr Berrios because he mostly is at Dr Corado office. HE does not use any dme but may go get his mothers saskia walker to have on standby. He is unsure of what he will need when he leaves here. I did mention hhc, skilled or swingbed if need and if would qualify. Will continue to follow and assist as needed.
--- NOTE | 2016-10-03 16:30 | NUR ---
Significant Event: A/OX3, VSS ON RA. MORPHINE IVP GIVEN TODAY X2 LAST AT 1432. SOME MEDICATIONS CHANGED TODAY. PT. GETS UP SBA-1 ASSIST TO BATHROOM. VOID X4, SM LOOSE BM'S X4. RIGHT CHEST PORT IS SALINE LOCKED & LEFT UPPER ARM IV. PT. REPOSITIONS SELF IN BED. PALLATATIVE CARE CAME BY TODAY, SEE NOTE IN CHART. AM LABS. BATH TODAY. COOPERATIVE WITH CARES. Follow up: CONTINUE WITH POC.
[2016-10-03 23:19] LABS: HEMATOCRIT 21.3 % (37.0-53.0); HEMOGLOBIN 6.9 g/dL (11.0-16.0)
[2016-10-04 06:10] LABS: HEMATOCRIT 22.1 % (37.0-53.0); MCV 91.7 fl (83.0-98.0); RBC 2.41 M/uL (3.50-5.50); RDW-CV 15.8 % (11.9-14.6)
[2016-10-04 06:13] LABS: MCHC 31.7 gm/dL (32.0-36.5)
[2016-10-04 06:15] LABS: PLATELET COUNT 2 K/uL (150-450)
--- NOTE | 2016-10-04 06:37 | NUR ---
Significant Event: Patient is alert/oriented x3. Vital signs stable. On room air, but had to apply 1-3L O2 during the night for very shallow breathing. Morphine given x3 last night, last at 0309. Patient reported significant pain relief with morphine. Platelets this AM 2, results called to Dr. Ayala, no now orders received. Patient did not have a BM last night. Ambulates well with SBA but fatigues very easily. Follow up: Continue to monitor per plan of care.
[2016-10-04 06:58] LABS: ABSOLUTE NEUTROPHIL CT (ANC) 4.7 K/uL (1.4-9.0); BANDED NEUTROPHIL # 0.4 K/uL (0.0-0.1); BANDED NEUTROPHILS % 8 %; LYMPHOCYTE # 0.4 K/uL (0.8-4.0); LYMPHOCYTE % 7 %; SEGMENTED NEUTROPHIL # 4.3 K/uL (1.4-9.0); SEGMENTED NEUTROPHIL % 85 %
--- NOTE | 2016-10-04 14:30 | NUR ---
A - NUT F/U. PALLIATIVE CARE FOLLOWING. ABD PAIN. NAUSEA - MEDS GIVEN. DECREASED APPETITE. LABS: ACCUCHECK WNL-REAS, GLU 173, BUN/CR 34/1.4, ALB 2.4, HGB/HCT 7.0/22.1 MEDS: FLAGYL, SSI, DIFLUCAN, LEVAQUIN, ROCEPHIN, PROTONIX, PREDNISONE, FLORASTOR, ZOLOFT, SEROQUEL, NAUSEA DIET: CLEAR LIQUID x 3. INTAKE: 0-25% ENSURE CLEAR TID NEEDS: 6418-0671 KCAL, 80-96 G PRO D - INADEQUATE NUTRIENT INTAKE R/T DECREASED APPETITE, ALTERED GI FUNCTION AEB INTAKE RECORD, CLEAR LIQUID DIET, CROHN'S, ABD PAIN, NAUSEA. I - GOAL FOR INCREASED NUTRIENT INTAKE. IF UNABLE TO ADV DIET REC PPN @ 80 ML/HR TO PROVIDE 972 KCAL AND 82 G PRO TO MEET 49% MIN KCAL AND 100% MIN PRO NEEDS UNTIL ORAL INTAKE IMRPOVES. M/E - WILL MONITOR POC, INTAKE, DIET. F/U IN 2-4 DAYS.
--- NOTE | 2016-10-04 16:17 | NUR ---
I did make [facility] referral to S with [place].
--- NOTE | 2016-10-04 17:12 | NUR ---
Significant Event: A/OX3. VSS ON 3L NC. ENCOURAGED TO WEAR O2 AT ALL TIMES. MORPHINE Q3HR PRN, CHRONIC PAIN IN ABDOMEN. R) CHEST PORT & L) UPPER ARM IV SL. BLOOD TRANSFUSION TONIGHT WHEN BLOOD READY. REPORTS 2 SM BM. CLEAR LIQUID DIET. Follow up:
--- NOTE | 2016-10-05 04:22 | NUR ---
Significant event: Patient A/O x 3. Up with minimal assist. Patient has been very tired all day. Transfused 1 unit of blood last night AM labs to follow. Right chest port SL'D. VSS 4mg Morphine given about every 3 hours. On 4L NC with sats in the mid to low 90's.
[2016-10-05 06:03] LABS: ALBUMIN 2.3 gm/dL (3.5-5.0); ANION GAP 14.5 (10.0-19.0); CALCIUM 8.5 mg/dL (8.5-10.5); CREATININE 1.8 mg/dL (0.6-1.3); MAGNESIUM 2.3 mg/dL (1.3-2.6); PHOSPHORUS 4.9 mg/dL (2.5-4.9); POTASSIUM 4.5 mMol/L (3.7-5.1)
[2016-10-05 06:14] LABS: HEMATOCRIT 25.1 % (37.0-53.0); HEMOGLOBIN 8.1 g/dL (11.0-16.0); MCH 29.2 pg (27.0-34.0); MCHC 32.3 gm/dL (32.0-36.5); MCV 90.6 fl (83.0-98.0); MPV 14.2 fl (9.4-12.4); RBC 2.77 M/uL (3.50-5.50); RDW-CV 15.9 % (11.9-14.6)
[2016-10-05 06:21] LABS: PLATELET COUNT 3 K/uL (150-450)
[2016-10-05 07:43] LABS: ABSOLUTE NEUTROPHIL CT (ANC) 7.3 K/uL (1.4-9.0); BANDED NEUTROPHIL # 0.4 K/uL (0.0-0.1); BANDED NEUTROPHILS % 5 %; LYMPHOCYTE # 0.6 K/uL (0.8-4.0); LYMPHOCYTE % 7 %; MONOCYTE # 0.2 K/uL (0.0-1.0); SEGMENTED NEUTROPHIL # 6.9 K/uL (1.4-9.0); SEGMENTED NEUTROPHIL % 86 %
--- NOTE | 2016-10-05 12:22 | NUR ---
I did try to see pt but resting. I did fax referral information to [facility]. Will try to see later.
--- NOTE | 2016-10-05 13:38 | NUR ---
reviewed student charting and on the floor from [id number] ale rn-ccc
[2016-10-05 16:33] LABS: BICARBONATE 20.1 mmol/L (18.0-23.0); PCO2 34 mmHg (35-45); PO2 56 mmHg (80-90)
--- NOTE | 2016-10-05 18:35 | NUR ---
Significant Event:Patient has slept alot today. Has O2 on at 4L. Has taken MS every 3-4 hours today, had Zofran once. Has been up to bathroom with assist. Is slightly insteady. SOB with activity. Has not eaten any meals today. Taking sips of fluids. Follow up:
[2016-10-06 05:23] LABS: HEMATOCRIT 23.3 % (37.0-53.0); MCV 90.7 fl (83.0-98.0); RBC 2.57 M/uL (3.50-5.50); RDW-CV 16.3 % (11.9-14.6)
[2016-10-06 05:34] LABS: HEMOGLOBIN 7.5 g/dL (11.0-16.0); MCH 29.2 pg (27.0-34.0); MCHC 32.2 gm/dL (32.0-36.5)
[2016-10-06 05:35] LABS: PLATELET COUNT 2 K/uL (150-450)
[2016-10-06 05:36] LABS: ALBUMIN 2.2 gm/dL (3.5-5.0); ANION GAP 19.8 (10.0-19.0); CALCIUM 8.3 mg/dL (8.5-10.5); CREATININE 2.6 mg/dL (0.6-1.3); POTASSIUM 4.8 mMol/L (3.7-5.1); TOTAL BILIRUBIN 0.8 mg/dL (0.0-1.5)
[2016-10-06 06:15] LABS: BANDED NEUTROPHIL # 0.5 K/uL (0.0-0.1); BANDED NEUTROPHILS % 5 %; LYMPHOCYTE % 10 %; SEGMENTED NEUTROPHIL # 8.5 K/uL (1.4-9.0); SEGMENTED NEUTROPHIL % 85 %
--- NOTE | 2016-10-06 06:34 | NUR ---
Significant Event: A/O X 3. HAS REMAINED IN BED THE ENTIRE SHIFT. TURNS HIMSELF OFTEN. REFUSED DINNER BUT DID HAVE 460 ML PO INTAKE. VSS, AFEBRILE. 02 LOW 90'S ON RA. COMPLAINED OF PAIN ONLY ONCE, HS MEDS WERE GIVEN WHICH INCLUDED MS CONTIN AND 2 MG IV MORPHINE PRN GIVEN WELL, PAIN WAS RELIEVED AND HE NEVER COMPLAINED OR REQUESTED AGAIN. HE HAS RESTED WELL THIS EVENING. PLT 2 THIS AM CALLED TO DR. MARTINEZ. HBG WAS 7.5 Follow up:
--- NOTE | 2016-10-06 10:53 | NUR ---
reviewed student charting. ale martines-ccc
--- NOTE | 2016-10-06 13:08 | NUR ---
A - NUT F/U. SIPS OF FLUIDS. NOT EATING. 1+ EDEMA. ABD PAIN. LABS: ACCUCHECK WNL-REAS, GLU 162, BUN/CR 73/2.6, ALB 2.2, HGB/HCT 7.5/23.3 MEDS: FLAGYL, SSI, LEVAQUIN, ROCEPHIN, ZOVIRAX, PROTONIX, PREDNISONE, FLORASTOR, ZOLOFT, SEROQUEL, NAUSEA DIET: DIABETIC. INTAKE: REF-50%. ENSURE CLEAR TID NEEDS: 0099-8037 KCAL, 80-96 G PRO D - INADEQUATE NUTRIENT INTAKE R/T DECREASED APPETITE AEB INTAKE RECORD. I - GOAL FOR INTAKE > 50% BY NEXT ASSESSMENT. WILL CHANGE ENSURE CLEAR TO GLUCERNA TID. M/E - WILL MONITOR POC, INTAKE. F/U IN 3-5 DAYS.
--- NOTE | 2016-10-06 23:28 | NUR ---
Bedside report RN to RN occured at 1840 patient awoke to go through introductions and went back to sleep shortly after. This RN went to write down labwork for patients and grab 1900 medication for this patient. While in med-room tele called to inform me that patient HR had decreased to 40, I stated that I was just on my way to go see patient and would check. As I was leaving the med-room tele called again informing me that the HR was now down to 30. I got into the room and HR was continuing to decline. Patient unresponsive at this time. peanut sorter notified. Patient is a DNR/DNI, palliative care is on the case. peanut sorter (Natasha Green) called while I called the Sister (next of kin). Family was not too surprised as had spoke with them that Souleymane was end stage. Terrell Mann RN and Natasha Amaya RN pronounced patient at 1858. Patient is not a NORS candidate.
== END 2016-10-06 20:30 | disposition expired | DRG 385 ==
LOC: GPCU 20:30
PROVIDERS: Family Medicine; Hospitalist; Physician Assistant; ADMIT Internal Medicine
PROC: 30233N1 Transfusion of Nonautologous Red Blood Cells into Peripheral Vein, Percutaneous Approach (ICD-10-PCS; principal; 2016-10-01)
DX: K50.90 Crohn's disease, unspecified, without complications (principal); J96.21 Acute and chronic respiratory failure with hypoxia; N17.9 Acute kidney failure, unspecified; D61.818 Other pancytopenia; R18.8 Other ascites; I48.0 Paroxysmal atrial fibrillation; N18.3 Chronic kidney disease, stage 3 (moderate); I47.1 Supraventricular tachycardia; D46.9 Myelodysplastic syndrome, unspecified; I25.10 Atherosclerotic heart disease of native coronary artery without angina pectoris; F41.9 Anxiety disorder, unspecified; F32.9 Major depressive disorder, single episode, unspecified; F17.210 Nicotine dependence, cigarettes, uncomplicated; N28.9 Disorder of kidney and ureter, unspecified; E86.9 Volume depletion, unspecified; R00.1 Bradycardia, unspecified; I12.9 Hypertensive chronic kidney disease with stage 1 through stage 4 chronic kidney disease, or unspecified chronic kidney disease; Z95.1 Presence of aortocoronary bypass graft; Z66 Do not resuscitate
CPT/HCPCS: G0378; J0153; J0696; J1160; J1940; J2270; J2405; J7030; J7040; J7050; J7120; J7512; P9037; P9040